=== PATIENT | male | born 2000 | race Caucasian/White ===

== ENCOUNTER 2018-04-29 10:20 | Observation (INO) | payer OTHER ==
[2018-04-29] MEDS ORDERED: NS 1,000 ML IV ONE (10:42)
[2018-04-29] MEDS ORDERED: DEXAMETHASONE 10 MG/ML VIAL IVP ONE (10:42)
[2018-04-29] MEDS ORDERED: KETOROLAC 15 MG/1 ML SDV IVP ONE (10:42)
--- NOTE | 2018-04-29 10:52 | EDPHY ---
H & P Stated Complaint: Dx strep 1wk RELAY TESTER, Clindamycin/benadryl x4D not working Time Seen by Provider: 04/29/18 10:37 HPI/ROS: CHIEF COMPLAINT: Continued sore throat HISTORY OF PRESENT ILLNESS: 17-year-old immunocompetent male complaining of 8 days of sore throat, diagnosis strep pharyngitis at [facility] initially started on Pen-VK however subsequently developed a rash, was transitioned to clindamycin and developed another rash. Was started on Benadryl. Complaining of continued sore throat. Was seen at [facility] and referred to the ER for possible peritonsillar abscess evaluation. He denies: Trismus, drooling, headache, nuchal rigidity, chest pain, dyspnea, abdominal pain, left upper quadrant pain, flank pain, abdominal trauma. REVIEW OF SYSTEMS: 10 systems reviewed and negative with the exception of the elements mentioned in the history of present illness PAST MEDICAL & SURGICAL HISTORY: No pertinent medical or surgical history SOCIAL HISTORY:Student. PHYSICAL EXAM (Prior to examination, patient consented to physical exam, hands were washed and my usual and customary physical exam procedures followed) 1) GENERAL: Well-developed, well-nourished, alert and oriented. Appears to be in no acute distress. 2) HEAD: Normocephalic, atraumatic 3) HEENT: Pupils equal, round, reactive to light bilaterally. Sclera anicteric. Nasopharynx, oropharynx, clear, no lesions. Moist Mucous membranes. Ears bilaterally with normal tympanic membranes. No evidence of otitis media or otitis externa. 4) NECK: Full range of motion, no meningeal signs. Positive left submandibular adenopathy 5) LUNGS: Clear auscultation bilaterally, no wheezes, no rhonchi, no retractions. 6) HEART: Regular rate and rhythm, no murmur, no heave, no gallop. 7) ABDOMEN: No guarding, no rebound, no focal tenderness, negative McBurney's, negative Cottrell's, negative Rovsing's, negative peritoneal sign, no left upper quadrant pain no splenomegaly. 8) MUSCULOSKELETAL: Moving all extremities, no focal areas of tenderness, no obvious trauma. No peripheral edema or discoloration. 9) BACK: No CVA tenderness, no midline vertebral tenderness, no fluctuance, no step-off, no obvious trauma, no visual or palpable abnormality. 10) SKIN: No rash, no petechiae. 11) Psychiatric: Patient is oriented X 3, there is no agitation. DIFFERENTIAL DIAGNOSIS: In no particular order, my differential diagnosis includes, but is not limited to, strep pharyngitis, viral pharyngitis, peritonsillar abscess, retropharyngeal abscess or phlegmon, mononucleosis, meningitis, Lemierre syndrome. - Personal History Current Tetanus/Diphtheria Vaccine: Yes - Medical/Surgical History Hx Asthma: No Hx Chronic Respiratory Disease: No Hx Diabetes: No Hx Cardiac Disease: No Hx Renal Disease: No Hx Cirrhosis: No Hx Alcoholism: No Hx HIV/AIDS: No Hx Splenectomy or Spleen Trauma: No Other PMH: none - Social History Smoking Status: Light smoker Constitutional: Initial Vital Signs Temperature (C) 36.6 C 04/29/18 10:29 Heart Rate 98 04/29/18 10:29 Respiratory Rate 18 04/29/18 10:29 Blood Pressure 119/77 04/29/18 10:29 O2 Sat (%) 100 04/29/18 10:29 O2 Delivery Mode Room Air Allergies/Adverse Reactions: cat dander Allergy (Verified 04/29/18 14:17) clindamycin Allergy (Verified 04/29/18 14:14) Hives milk Allergy (Verified 04/29/18 14:17) nut - unspecified Allergy (Verified 04/29/18 14:17) Penicillins Allergy (Verified 04/29/18 14:14) Hives shellfish derived Allergy (Verified 04/29/18 14:17) Home Medications: Medication Instructions Recorded Acetaminophen [Tylenol 325mg (*)] 325 mg PO Q6 PRN 04/29/18 Medical Decision Making - Diagnostics Imaging Results: Imaging Impressions Neck CT 04/29/18 10:59 Impression: Large area of inflammation seen in the left parapharyngeal space with a left peritonsillar abscess suspected. Results called and discussed with Raffi IRBY on 04/29/2018 at 12:41. Images reviewed myself ED Course/Re-evaluation: 1:00 p.m.: Discussed with the patient his imaging results showing a peritonsillar abscess and phlegmon. Patient has received IV Decadron and notes significant improvement in symptoms. He is all ready on oral clindamycin. He is planning on leaving for [place] tomorrow evening for spring. Will consult with ENT 1:15 p.m.: Dr. Angelito Connell in the ER to evaluate patient 1:35 p.m.: ENT would like to take patient to the operating room to perform incision and drainage and recommend he be admitted overnight to the hospitalist service. ENT recommend ceftriaxone. 1:50 p.m.: Consultation with hospitalist, admit to Dr. Blue - Data Points Laboratory Results: Laboratory Results 04/29/18 10:50 04/29/18 10:50 04/29/18 04/29/18 04/29/18 10:56 10:50 10:50 WBC RBC Hgb POC Hgb 17.3 gm/dL gm/dL (13.7-17.5) Hct POC Hct 51 % % (40-51) MCV MCH MCHC RDW Plt Count MPV Neut % (Auto) Lymph % (Auto) [place] % (Auto) Eos % (Auto) Baso % (Auto) Nucleat RBC Rel Count Absolute Neuts (auto) Absolute Lymphs (auto) Absolute Monos (auto) Absolute Eos (auto) Absolute Basos (auto) Absolute Nucleated RBC Immature Gran % Immature Gran # POC Sodium 141 mEq/L mEq/L (135-145) Sodium 139 mEq/L mEq/L (135-145) POC Potassium 3.9 mEq/L mEq/L (3.3-5.0) Potassium 4.2 mEq/L mEq/L (3.5-5.2) POC Chloride 102 mEq/L mEq/L (97-110) Chloride 103 mEq/L mEq/L (97-110) Carbon Dioxide 22 mEq/l mEq/l (22-31) POC Total CO2 23 mEq/L mEq/L (22-31) Anion Gap 14 mEq/L mEq/L (6-14) POC BUN 8 mg/dL mg/dL (7-23) BUN 10 mg/dL mg/dL (7-23) Creatinine 0.8 mg/dL mg/dL (0.7-1.3) POC Creatinine 0.7 mg/dL mg/dL (0.7-1.3) Estimated GFR > 60 Glucose 97 mg/dL mg/dL (70-100) POC Glucose 100 mg/dL mg/dL (70-100) Calcium 9.9 mg/dL mg/dL (8.5-10.4) Monoscreen NEGATIVE (NEGATIVE) 04/29/18 10:50 WBC 17.48 10^3/uL H 10^3/uL (3.80-9.50) RBC 5.39 10^6/uL 10^6/uL (4.40-6.38) Hgb 16.5 g/dL g/dL (13.7-17.5) POC Hgb Hct 48.4 % % (40.0-51.0) POC Hct MCV 89.8 fL fL (81.5-99.8) MCH 30.6 pg pg (27.9-34.1) MCHC 34.1 g/dL g/dL (32.4-36.7) RDW 12.9 % % (11.5-15.2) Plt Count 373 10^3/uL 10^3/uL (150-400) MPV 10.3 fL fL (8.7-11.7) Neut % (Auto) 73.7 % % (39.3-74.2) Lymph % (Auto) 16.8 % % (15.0-45.0) [place]oup % (Auto) 6.9 % % (4.5-13.0) Eos % (Auto) 0.6 % % (0.6-7.6) Baso % (Auto) 0.5 % % (0.3-1.7) Nucleat RBC Rel Count 0.0 % % (0.0-0.2) Absolute Neuts (auto) 12.90 10^3/uL H 10^3/uL (1.70-6.50) Absolute Lymphs (auto) 2.93 10^3/uL 10^3/uL (1.00-3.00) Absolute Monos (auto) 1.20 10^3/uL H 10^3/uL (0.30-0.80) Absolute Eos (auto) 0.11 10^3/uL 10^3/uL (0.03-0.40) Absolute Basos (auto) 0.08 10^3/uL 10^3/uL (0.02-0.10) Absolute Nucleated RBC 0.00 10^3/uL 10^3/uL (0-0.01) Immature Gran % 1.5 % H % (0.0-1.1) Immature Gran # 0.26 10^3/uL H 10^3/uL (0.00-0.10) POC Sodium Sodium POC Potassium Potassium POC Chloride Chloride Carbon Dioxide POC Total CO2 Anion Gap POC BUN BUN Creatinine POC Creatinine Estimated GFR Glucose POC Glucose Calcium Monoscreen Medications Given: Discontinued Medications Dexamethasone (Decadron Injection) 10 mg IVP EDNOW ONE Stop: 04/29/18 10:43 Last Admin: 04/29/18 11:09 Dose: 10 mg Sodium Chloride (Ns) 1,000 mls @ 0 mls/hr IV ONCE ONE PRN Reason: Wide Open Stop: 04/29/18 10:43 Last Admin: 04/29/18 11:09 Dose: 1,000 mls Ketorolac Tromethamine (Toradol) 15 mg IVP EDNOW ONE Stop: 04/29/18 10:43 Last Admin: 04/29/18 11:09 Dose: 15 mg Point of Care Test Results: Chemistry 04/29/18 10:56 POC Sodium 141 mEq/L mEq/L (135-145) POC Potassium 3.9 mEq/L mEq/L (3.3-5.0) POC Chloride 102 mEq/L mEq/L (97-110) POC Total CO2 23 mEq/L mEq/L (22-31) POC BUN 8 mg/dL mg/dL (7-23) POC Creatinine 0.7 mg/dL mg/dL (0.7-1.3) POC Glucose 100 mg/dL mg/dL (70-100) ISTAT H&H 04/29/18 10:56 POC Hgb 17.3 gm/dL gm/dL (13.7-17.5) POC Hct 51 % % (40-51) Departure - Departure Disposition: [facility] Acute Clinical Impression: Peritonsillar abscess, Retropharyngeal phlegmon Condition: Fair
[2018-04-29 11:01] LABS: PLATELET COUNT 373 10^3/uL (150-400)
[2018-04-29] MEDS ORDERED: IOPAMIDOL (ISOVUE-300) 100 ML BTL ONE (11:45)
--- NOTE | 2018-04-29 13:57 | EDV ---
[f rep st] EMERGENCY DEPARTMENT REPORT DATE OF SERVICE: 04/29/2018 IDENTIFYING DATA: This is a patient we are asked to see in the emergency room. CHIEF COMPLAINT: Left parapharyngeal abscess. HISTORY OF PRESENT ILLNESS: He has had a sore throat for a week. He has been on penicillin and cli ndamycin. He got a rash with both of those. He presents to the emergency room with increasing pain in the throat. He did have a history, he tells me, of strep in the past. 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 PHYSICAL EXAM: GENERAL: He is in no acute distress. Alert and oriented x3. HEENT: No trismus. He d oes have some swelling in his left lateral pharyngeal wall. The tonsil itself looks good, and I palp ate no fullness in the tonsil. IMAGING: CT scan of the head and neck was reviewed and shows what appears to be a left parapharyngea l/retropharyngeal abscess. It may track up behind the tonsil on his left. I did inject the left pharynx in the ER as well as the left peritonsillar space on the left. I opene d up the left pharyngeal space but did not get any purulence. I tried to open up the left superior p ole of the tonsil, but did not get any purulence. IMPRESSION: Left parapharyngeal abscess. RECOMMENDATIONS: 1. We will need to go to the operating room for incision and drainage. I have had a detailed discus matthew with the patient regarding the risks of bleeding, infection, anesthesia, failure to find the abs cess. We talked about the alternatives of further attempts in the ER, but I think we have gone as fa r as we can under local. I talked about the benefits of removing the pus. He did get some Decadron. /[id number]/MODL
[2018-04-29] MEDS ORDERED: MIDAZOLAM 2 MG/2 ML VIAL IVP ONE (14:31)
--- NOTE | 2018-04-29 14:31 | PDANEPAE ---
ANE History of Present Illness tonsillar abscess, here for I+D ANE Past Medical History - Cardiovascular History Hx Hypertension: No Hx Arrhythmias: No Hx Chest Pain: No Hx Coronary Artery / Peripheral Vascular Disease: No - Pulmonary History Hx COPD: No Hx Asthma/Reactive Airway Disease: No Hx Oxygen in Use at Home: No Hx Sleep Apnea: No - Endocrine History Hx Diabetes: No ANE Review of Systems Review of Systems: - Exercise capacity Exercise capacity: >=4 METS ANE Patient History - Allergies Allergies/Adverse Reactions: cat dander Allergy (Verified 04/29/18 14:17) clindamycin Allergy (Verified 04/29/18 14:14) Hives milk Allergy (Verified 04/29/18 14:17) nut - unspecified Allergy (Verified 04/29/18 14:17) Penicillins Allergy (Verified 04/29/18 14:14) Hives shellfish derived Allergy (Verified 04/29/18 14:17) - Home Medications Home Medications: Acetaminophen [Tylenol 325mg (*)] 325 mg PO Q6 PRN 04/29/18 [Last Taken Unknown] - NPO status NPO Status: no food or drink >8 hours NPO Since - Liquids (Date): 04/28/18 NPO Since - Liquids (Time): 23:55 NPO Since - Solids (Date): 04/28/18 NPO Since - Solids (Time): 23:55 - Anes Hx Anes Hx: no prior problems - Smoking Hx Smoking Status: Light smoker - Alcohol Use Alcohol Use: None - Family Anes Hx Family Anes Hx: none ANE Labs/Vital Signs - Labs Result Diagrams: 04/29/18 10:50 04/29/18 10:50 - Vital Signs Blood Pressure: 127/80 Heart Rate: 108 Respiratory Rate: 16 O2 Sat (%): 98 Height: 175.26 cm Weight: 61.235 kg ANE Physical Exam - Airway Neck exam: FROM Mallampati Score: Class 2 Mouth exam: normal dental/mouth exam - Pulmonary Pulmonary: no respiratory distress, clear to auscultation - Cardiovascular Cardiovascular: regular rate and rhythym, no murmur, rub, or gallop - ASA Status ASA Status: I ANE Anesthesia Plan Anesthesia Plan: general endotracheal anesthesia
[2018-04-29] MEDS ORDERED: ACETAMINOPHEN 325 MG TAB PO PRN (14:38)
[2018-04-29] MEDS ORDERED: oxyCODONE IR 5 MG TAB PO PRN ×2 (14:38→15:26)
[2018-04-29] MEDS ORDERED: ONDANSETRON DISINTEGRATING 4 MG TAB PO PRN (14:38)
[2018-04-29] MEDS ORDERED: HYDROmorphONE/DILAUDID 1 MG/ML INJ IVP PRN (14:38)
[2018-04-29] MEDS ORDERED: MIDAZOLAM 2 MG/2 ML VIAL ONE (14:38)
[2018-04-29] MEDS ORDERED: ONDANSETRON 4 MG/2 ML VIAL IVP PRN ×2 (14:38→15:26)
[2018-04-29] MEDS ORDERED: IBUPROFEN 200 MG TAB PO PRN (14:38)
[2018-04-29] MEDS ORDERED: fentaNYL 100 MCG/2 ML INJ ONE (14:39)
[2018-04-29] MEDS ORDERED: PROPOFOL 200 MG/20 ML VIAL ONE (14:39)
--- NOTE | 2018-04-29 14:40 | PDGENHP ---
History and Physical - Chief Complaint throat pain - History of Present Illness 17yo healthy M here with 7-8 days of sore throat. Was skiing last weekend when noticed throat pain and was very fatigued. Went to urgent care and was reportedly diagnosed with Strep throat and was started on penicillin-VK but developed rash. Was transitioned to clindamycin but developed rash with this too. Was having ongoing throat pain and vomited this AM so went to [facility] today who referred him to ED. CT shows left parapharyngeal space abscess. ENT was consulted and attempted local incision and drainage in ED but it is felt that he needs drainage in the OR. He does report having some chills/ sweats and occasional shortness of breath. Denies jaw pain/trismus, drooling, voice changes, neck pain/stiffness, chest pain. History Information - Allergies/Home Medication List Allergies/Adverse Reactions: cat dander Allergy (Verified 04/29/18 14:17) clindamycin Allergy (Verified 04/29/18 14:14) Hives milk Allergy (Verified 04/29/18 14:17) nut - unspecified Allergy (Verified 04/29/18 14:17) Penicillins Allergy (Verified 04/29/18 14:14) Hives shellfish derived Allergy (Verified 04/29/18 14:17) Home Medications: Acetaminophen [Tylenol 325mg (*)] 325 mg PO Q6 PRN 04/29/18 [Last Taken Unknown] I have personally reviewed and updated: family history, medical history, social history, surgical history - Past Medical History Additional medical history: Strep throat - Surgical History Reports: no pertinent surgical hx - Family History Positive for: non-pertinent - Social History Smoking Status: Light smoker Alcohol Use: Occasionally Drug Use: None Additional social history: Student at Review of Systems Review of Systems: ROS: 10pt was reviewed & negative except for what was stated in HPI & below Physical Exam Physical Exam: Temp Pulse Resp BP Pulse Ox 36.6 C 108 H 16 127/80 H 98 04/29/18 10:29 04/29/18 14:30 04/29/18 14:30 04/29/18 14:30 04/29/18 14:30 Constitutional: no apparent distress, appears nourished, not in pain Eyes: PERRL, anicteric sclera, EOMI Ears, Nose, Mouth, Throat: moist mucous membranes, hearing normal, ears appear normal, no oral mucosal ulcers, other (left posterior oropharyngeal inflammation and edema) Cardiovascular: regular rate and rhythym, no murmur, rub, or gallop, No edema Respiratory: no respiratory distress, no rales or rhonchi, clear to auscultation , other (no stridor) Gastrointestinal: normoactive bowel sounds, soft, non-tender abdomen, no palpable masses Genitourinary: no bladder fullness, no bladder tenderness Skin: warm, normal color, no rashes or abrasions, no fluctuance, no induration, No mottled Musculoskeletal: full muscle strength, no muscle tenderness, normal joint ROM, no joint effusions Neurologic: AAOx3 Psychiatric: interacting appropriately, not anxious, not encephalopathic, thought process linear Lab Data & Imaging Review 04/29/18 10:50 04/29/18 10:50 WBC 17.48 10^3/uL (3.80-9.50) H 04/29/18 10:50 RBC 5.39 10^6/uL (4.40-6.38) 04/29/18 10:50 Hgb 16.5 g/dL (13.7-17.5) 04/29/18 10:50 POC Hgb 17.3 gm/dL (13.7-17.5) 04/29/18 10:56 Hct 48.4 % (40.0-51.0) 04/29/18 10:50 POC Hct 51 % (40-51) 04/29/18 10:56 MCV 89.8 fL (81.5-99.8) 04/29/18 10:50 MCH 30.6 pg (27.9-34.1) 04/29/18 10:50 MCHC 34.1 g/dL (32.4-36.7) 04/29/18 10:50 RDW 12.9 % (11.5-15.2) 04/29/18 10:50 Plt Count 373 10^3/uL (150-400) 04/29/18 10:50 MPV 10.3 fL (8.7-11.7) 04/29/18 10:50 Neut % (Auto) 73.7 % (39.3-74.2) 04/29/18 10:50 Lymph % (Auto) 16.8 % (15.0-45.0) 04/29/18 10:50 [place] % (Auto) 6.9 % (4.5-13.0) 04/29/18 10:50 Eos % (Auto) 0.6 % (0.6-7.6) 04/29/18 10:50 Baso % (Auto) 0.5 % (0.3-1.7) 04/29/18 10:50 Nucleat RBC Rel Count 0.0 % (0.0-0.2) 04/29/18 10:50 Absolute Neuts (auto) 12.90 10^3/uL (1.70-6.50) H 04/29/18 10:50 Absolute Lymphs (auto) 2.93 10^3/uL (1.00-3.00) 04/29/18 10:50 Absolute Monos (auto) 1.20 10^3/uL (0.30-0.80) H 04/29/18 10:50 Absolute Eos (auto) 0.11 10^3/uL (0.03-0.40) 04/29/18 10:50 Absolute Basos (auto) 0.08 10^3/uL (0.02-0.10) 04/29/18 10:50 Absolute Nucleated RBC 0.00 10^3/uL (0-0.01) 04/29/18 10:50 Immature Gran % 1.5 % (0.0-1.1) H 04/29/18 10:50 Immature Gran # 0.26 10^3/uL (0.00-0.10) H 04/29/18 10:50 POC Sodium 141 mEq/L (135-145) 04/29/18 10:56 Sodium 139 mEq/L (135-145) 04/29/18 10:50 POC Potassium 3.9 mEq/L (3.3-5.0) 04/29/18 10:56 Potassium 4.2 mEq/L (3.5-5.2) 04/29/18 10:50 POC Chloride 102 mEq/L (97-110) 04/29/18 10:56 Chloride 103 mEq/L (97-110) 04/29/18 10:50 Carbon Dioxide 22 mEq/l (22-31) 04/29/18 10:50 POC Total CO2 23 mEq/L (22-31) 04/29/18 10:56 Anion Gap 14 mEq/L (6-14) 04/29/18 10:50 POC BUN 8 mg/dL (7-23) 04/29/18 10:56 BUN 10 mg/dL (7-23) 04/29/18 10:50 Creatinine 0.8 mg/dL (0.7-1.3) 04/29/18 10:50 POC Creatinine 0.7 mg/dL (0.7-1.3) 04/29/18 10:56 Estimated GFR > 60 04/29/18 10:50 Glucose 97 mg/dL (70-100) 04/29/18 10:50 POC Glucose 100 mg/dL (70-100) 04/29/18 10:56 Calcium 9.9 mg/dL (8.5-10.4) 04/29/18 10:50 Monoscreen NEGATIVE (NEGATIVE) 04/29/18 10:50 Interpretation: CT neck: large area of inflammation seen in the left parapharnygeal space with a left peritonsillar abscess suspected Assessment & Plan Assessment: 17yo healthy M here with 7-8 days of sore throat found to have parapharyngeal abscess. Plan: #Left parapharyngeal infection/peritonsillar abscess: Suspect odontogenic/oral source. He is immunocompetent. Protecting airway. Not septic. - s/p I&D with ENT in OR this afternoon - no need for additional antibiotics now that have source control - pain control VTE ppx: low risk, SCDs Code: full Dispo: Admit under observation
[2018-04-29] MEDS ORDERED: LR 1,000 ML IV ONE (14:41)
[2018-04-29] MEDS ORDERED: ROCURONIUM 50 MG/5 ML VIAL ONE (14:42)
[2018-04-29] MEDS ORDERED: LIDOCAINE 2% 100 MG/5 ML SYR ONE (14:43)
[2018-04-29] MEDS ORDERED: ACETAMINOPHEN 500 MG TAB PO PRN (15:26)
[2018-04-29] MEDS ORDERED: HYDROCODONE/APAP 5/325 TAB PO PRN (15:26)
[2018-04-29] MEDS ORDERED: PROMETHAZINE HCL 25 MG/ML INJ IVP PRN (15:26)
[2018-04-29] MEDS ORDERED: NALOXONE HCL 0.4 MG/ML INJ IVP PRN (15:26)
--- NOTE | 2018-04-29 15:28 | POSTANESTH ---
Post Anesthetic Evaluation Cardiovascular Status: Normal, Stable, Similar to Pre-Op Cond Respiratory Status: Normal, Stable, Similar to Pre-op Cond. Level of Consciousness/Mental Status: Can Participate in Eval, Alert and Oriented Pain Control: Adequate, Prn Tx Ordered Nausea/Vomiting Control: Adequate, Prn Tx Ordered Complications Possibly Related to Anesthesia: None Noted
--- NOTE | 2018-04-29 15:33 | GOP ---
[f rep st] OPERATIVE REPORT DATE OF OPERATION: 04/29/2018 SURGEON: Angelito Connell MD ANESTHESIA: General endotracheal. PREOPERATIVE DIAGNOSIS: Left retropharyngeal abscess. POSTOPERATIVE DIAGNOSIS: Left retropharyngeal abscess. PROCEDURE PERFORMED: Incision and drainage of a left retropharyngeal abscess. FINDINGS: Left retropharyngeal abscess incised and drained nicely as above. I removed 3 mL or so of purulence. SPECIMENS: Cultures and sensitivities sent. No specimens. ESTIMATED BLOOD LOSS: Minimal. DESCRIPTION OF PROCEDURE: The patient was placed in the supine position and orally endotracheally in tubated. We had tried to do an incision and drainage in the ER in his left retropharynx and actually tried to go through the left superior pole of the peritonsillar area, but were unable to get into th e abscess cavity. He does want to try to retain his tonsils as he is trying to leave town tomorrow or spring and he would like to go ahead with an incision and drainage if possible and come back and do the tonsils at the later date if possible. Once he was intubated and a Niall-Yoel mouth gag was placed, he had a bulging in his left retrophary nx just below the tonsils. The previous incision site was over the area and I went through that and pressed more laterally with hemostats and was able to enter a nice abscess cavity. There was sent fo r cultures and sensitivity. I opened up the cavity widely with suction and blunt dissection. It was copiously irrigated and suctioned. The tonsils, themselves, were normal in appearance. Essentially . No evidence of a peritonsillar abscess. I did open up the abscess cavity widely inferiorly and andrade periorly behind the tonsil in the pharyngeal space. He tolerated the procedure well, was in good con dition at the end of procedure. /[id number]/MODL
[2018-04-29] MEDS ORDERED: HYDROmorphONE/DILAUDID 2 MG/ML INJ ONE (15:41)
[2018-04-29] MEDS: HYDROmorphONE/DILAUDID 2 MG/ML INJ IVP PRN ×4 (15:43→17:01)
[2018-04-29] MEDS ORDERED: HYDROCODONE/APAP 5/325 TAB ONE (16:07)
--- NOTE | 2018-04-29 17:00 | SOAPPROG ---
SOAP Progress Note Assessment/Plan: pt awake and doing well after surgery for abscess. OC- resolved swelling Plan: paln for discharge after morning meds. I will round on him mid morning. 04/29/18 16:58 Objective: Vital Signs Temp Pulse Resp BP Pulse Ox 36.7 C 70 14 114/62 97 04/29/18 15:26 04/29/18 16:35 04/29/18 16:35 04/29/18 16:35 04/29/18 16:35 Microbiology 04/29/18 15:07 Gram Stain - Final Other - Eswab 04/29/18 15:05 Gram Stain - Final Other - Eswab 04/28/18 04/29/18 04/30/18 05:59 05:59 05:59 Intake Total 900 Output Total 20 Balance 880 - Pending Discharge Pending Discharge Within 24 Hours: Yes Pending Discharge Date: 04/30/18 Pending Discharge Time: 11:00 ICD10 Worksheet Patient Problems: Problems Problem Status Onset Peritonsillar abscess Acute
[2018-04-29] MEDS: HYDROmorphONE/DILAUDID 1 MG/ML INJ IVP PRN (20:22)
[2018-04-29] MEDS: DEXAMETHASONE 4 MG/ML VIAL IVP SCH (21:43)
[2018-04-30] MEDS: HYDROmorphONE/DILAUDID 1 MG/ML INJ IVP PRN (01:35)
[2018-04-30] MEDS: HYDROCOD/APAP 7.5/325 IN 15ML UDCUP PO PRN ×2 (05:07→09:06)
[2018-04-30] MEDS: DEXAMETHASONE 4 MG/ML VIAL IVP SCH (05:07)
[2018-04-30 08:21] VITALS: BP 120/75
--- NOTE | 2018-04-30 10:14 | HOSPPROG ---
Hospitalist Progress Note Assessment/Plan: Sincere is a 17 y/o male who had 7-8 days of a sore throat. A CT scan revealed a parapharyngeal abscess that was I & D in OR. First encounter, chart reviewed. *Left parapharyngeal infection/peritonsillar abscess: Suspect odontogenic/oral source. -he has multiple reactions to antibiotics -will ask ID to weigh in, he may need abx -big issue is pain control Subjective: Sincere is c/o ongoing sore throat. Objective: Vital Signs Temp Pulse Resp BP Pulse Ox 36.5 C 61 16 120/75 98 04/30/18 08:00 04/30/18 08:00 04/30/18 08:00 04/30/18 08:00 04/30/18 08:00 Microbiology 04/29/18 15:07 Gram Stain - Final Other - Eswab 04/29/18 15:05 Gram Stain - Final Other - Eswab Laboratory Results 04/30/18 04:55 04/29/18 04/30/18 05/01/18 05:59 05:59 05:59 Intake Total 900 Output Total 20 Balance 880 - Physical Exam Constitutional: uncomfortable Eyes: PERRL Ears, Nose, Mouth, Throat: other (left tonsil area with redness, small amount of purulent drainage, swelling) Respiratory: no respiratory distress Gastrointestinal: normoactive bowel sounds Skin: warm Musculoskeletal: full muscle strength Neurologic: AAOx3 Psychiatric: interacting appropriately ICD10 Worksheet Patient Problems: Problems Problem Status Onset Peritonsillar abscess Acute
[2018-04-30] MEDS ORDERED: PHENOL 177 ML THROAT SPRAY PO PRN (11:10)
[2018-04-30] MEDS ORDERED: MOXIFLOXACIN 400 MG TAB PO SCH (11:15)
--- NOTE | 2018-04-30 11:23 | SOAPPROG ---
SOAP Progress Note Assessment/Plan: pt awake and doing well after surgery for abscess. OC- resolved swelling Plan: H eis good to discharge. I switched his HYCEWt as out pt to vicodin so he can take as carry on his luggage. discussed sx to be concerned about. F/u prn 04/29/18 16:58 04/30/18 11:22 Objective: Vital Signs Temp Pulse Resp BP Pulse Ox 36.5 C 61 16 120/75 98 04/30/18 08:00 04/30/18 08:00 04/30/18 08:00 04/30/18 08:00 04/30/18 08:00 Microbiology 04/29/18 15:07 Gram Stain - Final Other - Eswab 04/29/18 15:05 Gram Stain - Final Other - Eswab Laboratory Results 04/30/18 04:55 04/29/18 04/30/18 05/01/18 05:59 05:59 05:59 Intake Total 900 Output Total 20 Balance 880 ICD10 Worksheet Patient Problems: Problems Problem Status Onset Peritonsillar abscess Acute
--- NOTE | 2018-04-30 11:51 | ASMTLACE ---
LACE Length of stay for Answers: Less than 1 day current admission Acuity / Level of Answers: No Care: Did the patient have an inpatient admission? # of Emergency department Answers: 1-2 visits in the last 6 months Score: 1 Date Signed: 04/30/2018 11:51 AM Electronically Signed By:CARLIN Sanchez
--- NOTE | 2018-04-30 11:54 | ASDISCHSUM ---
Discharge Information Plan Status:Home with No Needs Medically Cleared to Leave:04/30/2018 Discharge Date:04/30/2018 CM D/C Disposition:Home, Routine, Self-Care ADT D/C Disposition:Home, Routine, Self-Care Projected Discharge Date:04/30/2018 Transportation at D/C:Friend Discharge Delay Reason: Follow-Up Date:04/30/2018 Discharge Slot: Final Diagnosis: Placement Information Patient Contact Information Contact Name:IFEANYI Relationship: Address: AV Work Phone: City:[facility] Phone: State/Zip Code:[place] [address] Email: Financial Information Financial Class:HMO and PPO Plans Primary Plan Desc:[employer] Primary Plan Number:[id number] Secondary Plan Desc: Secondary Plan Number: Assessment Information LACE LACE Length of stay for Answers: Less than 1 day current admission Acuity / Level of Answers: No Care: Did the patient have an inpatient admission? # of Emergency department Answers: 1-2 visits in the last 6 months Score: 1 Date Signed: 04/30/2018 11:51 AM Electronically Signed By:CARLIN Sanchez Case Management Discharge Plan Note Case Management Discharge Discharge Order Complete? Answers: Yes Patient to Obtain Answers: Independently Medications Transportation Arranged Answers: Family/Friends Discharge Comments Notes: Pt is s/p L retropharyngeal abscess I&D. He is discharging home independent today with no CM needs. Date Signed: 04/30/2018 11:53 AM Electronically Signed By:CARLIN Sanchez Intervention Information
--- NOTE | 2018-04-30 12:24 | PDCONSULT ---
[facility] Note: Infectious Diseases Consult Note Impression: A 17-year-old man with left-sided retropharyngeal abscess likely secondary to strep throat infection. With severity of infection and degree of residual edema in conjunction with corticosteroid use prefer a 7 day course of oral antibiotics to ensure he is able to heal and to minimize risk for relapse. It is feasible that his rash from penicillin actually represents expected reactions have beta-lactam antibiotics in the setting of mononucleosis, Monospot test can be negative early in disease. He does state that he has had mono in the past although acute CMV infection could precipitate a mono like syndrome and have the same beta-lactam rash. It would be useful for him to see an vocational education professional in the future to do skin testing for true allergy. 1. Left-sided retropharyngeal abscess, likely polymicrobial 2. Status post left retropharyngeal abscess drainage by ENT on 04/29/18 Plan: 1. Moxifloxacin 400 mg p.o. Daily x7 days at discharge 2. Sent HIV testing with patient verbal consent 3. Send LFTs to determine if possible EBV or CMV infection underlying peritonsillar abscess formation 4. Will call patient with results of HIV testing 5. No ID follow-up necessary 6. Reviewed in detail potential side effects of moxifloxacin to include: allergy , rash, nausea, antibiotic-associated diarrhea, Clostridioides difficile colitis , tendinopathy (particularly Achilles' tendon), retinopathy, and the quinolone syndrome. Patricio Jc MD Infectious Diseases Chief Complaint: Fever and throat pain Requesting Provider: Paula Bolanos Reason for Referral: Consultation was requested by Paula Bolanos regarding antimicrobial management. HPI: 17-year-old man who presented to the hospital approximately 1 week after developing sore throat, odynophagia, nonproductive cough, fevers and chills. He was initially seen in urgent care last Wednesday where he was prescribed penicillin for presumed strep throat. He developed a rash that was erythematous and pruritic initially over his wrists and elbows which prompted cessation of penicillin. On Wednesday presented to the [facility] where they prescribed clindamycin to replace the penicillin, which resulted in worsening of the erythematous pruritic rash. He developed some loose stools while taking the clindamycin for 2 days. Due to ongoing throat pain and fever he was instructed to present to the emergency department. He underwent left retropharyngeal abscess incision and debridement on 2018 with 3 cc of purulent material removed. Cultures have not grown to date but show gram-positive cocci in chains on Gram stain. Overall he feels better after undergoing surgery and drainage. He was able to eat breakfast with some discomfort this morning and his cough has resolved. He has 1 sexual partner that is female for the past year and a half, the use condoms most of the time. Although he has no clear risk factors for HIV infection in has no clinical signs or symptoms to suggest HIV infection he has agreed to undergo routine screening. Chronology of Present Illness: Location of symptoms: Throat Onset of symptoms: Approximately 1 week prior to admission Initial signs/symptoms: Started with sore throat and nonproductive cough associated with odynophagia Associated signs/symptoms at onset: Fever and chills Changes since onset: Resolution of fever and chills, less throat pain, resolution of cough Exacerbating factors: Swallowing Relieving factors: Relieved with surgery Antibiotics since symptom onset: Penicillin as an outpatient approximately 1 week prior to admission that resulted in a rash; penicillin changed to clindamycin which he took for approximately 2 days which resulted in worsening of the rash; ceftriaxone at admission to hospital Change in symptoms with antibiotics: Symptoms improved with surgery Relevant social history: Smokes vaporized marijuana daily Reviewed patient medical records in [facility], and [facility] Information [facility] [place] ([facility] Past Medical History: No chronic medical conditions Past Surgical History: Left-sided retropharyngeal drainage 04/28/2018 Social History: Does not use tobacco products; smokes marijuana via vaporizer daily; does not drink alcohol; Does not use any other drugs currently or in the past; student that [employer] in [place], originally from [place], [place] where he is going to return for spring Family History: No family members with recurrent infections Allergies: Penicillin caused a rash on 04/22/18; clindamycin taking 1 day after penicillin rash resulted in worsening of the rash in April 2018 Medications: Reviewed in medical record and confirmed with patient. ROS: 10 organ systems reviewed; pertinent positives and negatives listed in the HPI, all other organ systems negative. Physical Exam: VS: Reviewed Gen: No acute distress; Breathing comfortably without supplemental oxygen; Able to speak in complete sentences Eyes: No conjunctival injection; No scleral icterus HENT: Left tonsillar area swelling reaching midline, no purulence visible, no bleeding Neck: No limitation in range of motion; no lymphadenopathy Pulm: Audible inspiratory sounds to the bases bilaterally; No wheeze, rhonchi, or rales CV: Normal S1 and S2; Regular rate and rhythm; No murmurs, rubs, or gallops; No lower extremity edema Abd: Not distended; Normo-active bowel sounds; Soft; Non-tender Skin: A full skin exam including exposed bilateral upper extremities, bilateral lower extremities to the knees, face, neck, abdomen, chest, and back performed; Skin intact, warm, with no rash MSK: Joints without erythema or edema; No gross limitation in range of motion Ext: No clubbing or cyanosis Neuro: Awake and alert Psych: Normal mood and affect Labs/Imaging: All microbiology testing (culture and non-culture) reviewed in the medical record. Personally reviewed and interpreted the images of the following radiographs: CT neck showing left-sided soft tissue swelling in abscess Medications Generic Name Dose Route Start Last Admin Trade Name Freq PRN Reason Stop Dose Admin Dexamethasone 4 mg 04/29/18 22:00 04/30/18 05:07 Decadron Injection IVP 10/26/18 21:59 4 mg [id number] MACHO Discontinued Medications Generic Name Dose Route Start Last Admin Trade Name Freq PRN Reason Stop Dose Admin Ceftriaxone Sodium/Dextrose 50 mls @ 100 mls/hr 04/29/18 15:15 04/29/18 15:38 Rocephin 1 Gm (Premix) IV 04/29/18 15:44 50 mls ONCE ONE Microbiology 04/29/18 15:07 Other - Eswab Gram Stain - Final 04/29/18 15:05 Other - Eswab Gram Stain - Final Laboratory Tests 04/29/18 04/29/18 04/29/18 10:50 10:50 10:50 WBC 17.48 H Hgb 16.5 Plt Count 373 Creatinine 0.8 Monoscreen NEGATIVE 04/30/18 04:55 WBC 21.55 H Hgb 14.5 Plt Count 349 Creatinine Monoscreen Ongoing monitoring for antimicrobial toxicity with: CBC, BMP.
== END 2018-04-30 13:15 | disposition home or self-care (01) ==
LOC: F3E 17:28
PROVIDERS: ADMIT Internal Medicine; ATTEND Internal Medicine
PROC: 0C9M3ZZ Drainage of Pharynx, Percutaneous Approach (ICD-10-PCS; principal; 2018-04-29 14:30)
DX: J36 Peritonsillar abscess (principal); Z88.0 Allergy status to penicillin; Z91.018 Allergy to other foods; Z91.011 Allergy to milk products; Z91.013 Allergy to seafood
CPT/HCPCS: 42725; 70491; 96361; 96374; 96375; 96376; 99285; G0378; 82435-PO; 82565-PO; 82947-PO; 84132-PO; 84295-PO; 84520-PO; 85014-ER; J0696; J1100; J1170; J1885; J2001; J2250; J2405; J2704; J3010; Q9967